=== PATIENT | female | born 1965 | race Caucasian/White ===

== ENCOUNTER 2020-04-05 00:15 | Emergency (ER) | payer OTHER ==
[~2020-04-05] VITALS: Ht 157.5 cm; Wt 72.7 kg
[2020-04-05] MEDS ORDERED: ASPIRIN 81 MG CHEW TABLET As Ordered ONE (00:42)
[2020-04-05] MEDS ORDERED: NITROGLYCERIN 0.4 MG SUBL TABLET As Ordered ONE (00:42)
[2020-04-05 00:43] LABS: BASO # 0.1 10^3/uL (0.0-0.2); BASO % 0.4 % (0.0-1.0); EOS # 0.2 10^3/uL (0.0-0.5); EOS % 1.1 % (0.0-3.0); HEMATOCRIT 36.8 % (36.0-47.0); HEMOGLOBIN 11.9 g/dl (12.0-15.5); LYMPH # 2.1 10^3/uL (1.5-5.0); LYMPH % 14.5 % (24.0-44.0); MEAN CORPUSCULAR HEMOGLOBIN 29.6 pg (27.0-33.0); MEAN CORPUSCULAR HGB CONC 32.3 g/dl (32.0-36.5); MEAN CORPUSCULAR VOLUME 91.5 fl (80.0-96.0); MONO # 1.2 10^3/uL (0.0-0.8); MONO % 8.5 % (2.0-8.0); NEUTROPHILS # 10.6 10^3/uL (1.5-8.5); PLATELET COUNT, AUTOMATED 252 10^3/uL (150-450); RED BLOOD COUNT 4.02 10^6/uL (4.00-5.40); WHITE BLOOD COUNT 14.1 10^3/uL (4.0-10.0)
[2020-04-05] MEDS ORDERED: FERR325T3 PO (00:45)
[2020-04-05] MEDS ORDERED: VALS1TAB66 PO (00:45)
[2020-04-05] MEDS ORDERED: METO1TAB87 PO (00:45)
[2020-04-05] MEDS ORDERED: ASPI1CHW3 PO (00:45)
[2020-04-05] MEDS ORDERED: HYDR12CA PO (00:45)
[2020-04-05] MEDS ORDERED: ASPIRIN 81 MG CHEW TABLET PO ONE (00:45)
[2020-04-05] MEDS ORDERED: WELLTAB40 PO (00:47)
[2020-04-05] MEDS ORDERED: PROT1TAB2 PO (00:47)
[2020-04-05] MEDS: NITROGLYCERIN 0.4 MG SUBL TABLET SL PRN ×3 (00:48→01:00)
[2020-04-05 01:00] VITALS: BP 137/67
--- NOTE | 2020-04-05 01:01 | REPVR ---
PROCEDURE INFORMATION: Exam: XR Chest, 1 View Exam date and time: 04/05/2020 12:52 AM Age: 54 years old Clinical indication: Other: Chest pain TECHNIQUE: Imaging protocol: XR of the chest Views: 1 view. COMPARISON: No relevant prior studies available. FINDINGS: Lungs: There is decreased inflation of the lungs. Mild left base infiltrate or atelectasis. The right lung is clear. Pleural spaces: Unremarkable. No pleural effusion. No pneumothorax. Heart/Mediastinum: Unremarkable. No cardiomegaly. Bones/joints: Unremarkable. IMPRESSION: 1. Mild left base infiltrate or atelectasis. 2. Otherwise negative poor inspiratory chest. Electronically signed by: Dorian Morris On 04/05/2020 01:01:19 AM
[2020-04-05] MEDS ORDERED: MORPHINE 4 MG/ML 1ML VIAL/SYRINGE (J2270) As Ordered ONE (01:05)
[2020-04-05] MEDS ORDERED: MORPHINE 4 MG/ML 1ML VIAL/SYRINGE (J2270) IV ONE ×2 (01:15→02:15)
[2020-04-05 01:18] LABS: ALBUMIN 3.1 GM/DL (3.2-5.2); ALT/SGPT 30 U/L (12-78); BILIRUBIN,DIRECT 0.2 MG/DL (0.0-0.2); BILIRUBIN,TOTAL 0.5 MG/DL (0.2-1.0); BLOOD UREA NITROGEN 18 MG/DL (7-18); CARBON DIOXIDE LEVEL 33 MEQ/L (21-32); CHLORIDE LEVEL 96 MEQ/L (98-107); CPK CREATINE PHOSPHOKINASE 159 U/L (26-192); CREATININE FOR GFR 0.86 MG/DL (0.55-1.30); FREE T4 1.16 NG/DL (0.76-1.46); GLOMERULAR FILTRATION RATE > 60.0 (>51); GLUCOSE, FASTING 256 MG/DL (70-100); LIPASE 72 U/L (73-393); MB/CK RELATIVE INDEX 5.03 (< OR =4); POTASSIUM SERUM 3.3 MEQ/L (3.5-5.1); SODIUM LEVEL 136 MEQ/L (136-145); TOTAL PROTEIN 7.5 GM/DL (6.4-8.2); TROPONIN I < 0.02 NG/ML (< 0.10)
[2020-04-05 01:21] LABS: INR 0.98; PROTHROMBIN TIME 13.2 SECONDS (12.5-14.3)
[2020-04-05 01:22] LABS: PARTIAL THROMBOPLASTIN TIME 37.2 SECONDS (24.2-38.5)
[2020-04-05 01:24] LABS: D-DIMER QUANT 1112.46 ng/ml (<500)
[2020-04-05] MEDS ORDERED: POTASSIUM CHLORIDE 10 MEQ SR TABLET PO ONE (01:30)
[2020-04-05] MEDS ORDERED: ISOVUE-370 76% 100ML VIAL As Ordered ONE (01:33)
--- NOTE | 2020-04-05 02:05 | REPVR ---
PROCEDURE INFORMATION: Exam: CT Angiography Chest With Contrast Exam date and time: 04/05/2020 1:51 AM Age: 54 years old Clinical indication: Chest pain; Additional info: Chest pain, pleuritic TECHNIQUE: Imaging protocol: Computed tomographic angiography of the chest with contrast. 3D rendering (Not supervised by radiologist): MIP and/or 3D reconstructed images were created by the technologist. Radiation optimization: All CT scans at this facility use at least one of these dose optimization techniques: automated exposure control; mA and/or kV adjustment per patient size (includes targeted exams where dose is matched to clinical indication); or iterative reconstruction. Contrast material: ISOVUE 370; Contrast volume: 75 ml; Contrast route: INTRAVENOUS (IV); COMPARISON: CR PORTABLE CHEST X-RAY 04/05/2020 12:49 AM FINDINGS: Pulmonary arteries: The main pulmonary artery measures 28 mm. No pulmonary embolism is identified. Aorta: The ascending thoracic aorta measures 28 mm. Lungs: Mild bibasilar fibro-atelectatic change with minimal infiltrates, greatest in the lower lobes. Pleural spaces: Minimal loculated left pleural effusion. Heart: Unremarkable. No cardiomegaly. No pericardial effusion. Lymph nodes: Unremarkable. No enlarged lymph nodes. Stomach and bowel: Status post gastric sleeve. Bones/joints: Unremarkable. No acute fracture. Soft tissues: Unremarkable. IMPRESSION: 1. Mild bibasilar fibro-atelectatic change with minimal infiltrates, greatest in the lower lobes with minimal loculated left pleural effusion. 2. Status post gastric sleeve. 3. Otherwise negative CTA chest. No pulmonary embolism is identified. Electronically signed by: Dorian Morris On 04/05/2020 02:05:11 AM
[2020-04-05] MEDS ORDERED: HEPARIN DRIP 25,000 UNITS in IV 1 EA IV SCH (02:10)
[2020-04-05] MEDS ORDERED: HEPARIN SOD (PORCINE) 5000UNITS/ML 1ML VIAL/SYRINGE IV ONE (02:15)
[2020-04-05] MEDS ORDERED: CLOPIDOGREL 300 MG TAB (PLAVIX) PO ONE (02:15)
[2020-04-05 03:15] VITALS: BP 143/78
--- NOTE | 2020-04-05 14:56 | ECGEPIP ---
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
== END 2020-04-05 03:36 | disposition short-term general hospital (02) ==
LOC: M ED 00:15
DX: I20.0 Unstable angina (principal); I25.2 Old myocardial infarction; E11.9 Type 2 diabetes mellitus without complications; I10 Essential (primary) hypertension; E78.5 Hyperlipidemia, unspecified; Z82.49 Family history of ischemic heart disease and other diseases of the circulatory system; Z98.84 Bariatric surgery status; Z79.82 Long term (current) use of aspirin; Z79.899 Other long term (current) drug therapy; Z88.0 Allergy status to penicillin
CPT/HCPCS: 71045; 71275; 80048; 80076; 82550; 82553; 83690; 84439; 84443; 84484; 85025; 85379; 85610; 85730; 87798; 93005; 93041; 94760; 96374; 96376; 99285; J1644; J2270; Q9967